=== PATIENT | female | born 1980 | race Caucasian/White ===

== ENCOUNTER 2018-10-22 16:08 | Emergency (ER) | payer MEDICAID ==
--- NOTE | 2018-10-22 16:33 | EDPHY ---
H & P Stated Complaint: abdominal pain Time Seen by Provider: 10/22/18 16:31 HPI/ROS: CHIEF COMPLAINT: Severe abdominal pain HISTORY OF PRESENT ILLNESS: 37-year-old female presents with severe abdominal pain. She was driving her car when she had sudden onset of severe lower abdominal pain. Pain waxed and waned and was associated with dizziness and nausea. She had a bowel movement without relief in pain. Continued to feel nauseated and felt like she might faint so she called 911. Pain is now 4/10 and located in the suprapubic area. LMP 2+ weeks ago, has IUD. No prior similar symptoms. No prior history of ovarian cysts or kidney stones. REVIEW OF SYSTEMS: complete 10 point ROS reviewed and is negative except for the noted elements in the HPI - Personal History LMP (Females 10-55): 15-21 Days Ago Current Tetanus/Diphtheria Vaccine: No Current Tetanus Diphtheria and Acellular Pertussis (TDAP): No - Medical/Surgical History PMH: Appendectomy Hx Asthma: No Hx Chronic Respiratory Disease: No Hx Diabetes: No Hx Cardiac Disease: No Hx Renal Disease: No Hx Cirrhosis: No Hx Alcoholism: No Hx HIV/AIDS: No Hx Splenectomy or Spleen Trauma: No - Social History Smoking Status: Never smoked Alcohol Use: Sober Drug Use: None - Physical Exam Exam: General Appearance: Alert, pleasant Eyes: Pupils equal and round, no conjunctival pallor or injection ENT, Mouth: Mucous membranes moist Neck: Normal inspection Respiratory: Lungs are clear to auscultation Cardiovascular: Regular rate and rhythm Gastrointestinal: Abdomen is soft, suprapubic and right lower quadrant tenderness, no peritoneal signs Neurological: A&O, nonfocal, normal gait Skin: Warm and dry, no rash Extremities: Normal inspection Psychiatric: Mood and affect normal Constitutional: Initial Vital Signs Temperature (C) 36.6 C 10/22/18 16:19 Heart Rate 77 10/22/18 16:19 Respiratory Rate 16 10/22/18 16:19 Blood Pressure 118/77 10/22/18 16:19 O2 Sat (%) 97 10/22/18 16:19 O2 Delivery Mode Room Air Allergies/Adverse Reactions: No Known Allergies Allergy (Verified 10/22/18 16:18) Home Medications: Medication Instructions Recorded Evening [place] Oil 1 cap PO DAILY 07/05/13 Herbals/Supplements -Info Only 07/05/13 Herbals/Supplements -Info Only 07/05/13 [place]-3/Dha/Epa/Fish Oil [Fish Oil] 1 cap PO DAILY 07/05/13 Vit27&Calcium/Iron/FA 1 each PO DAILY 07/05/13 [ Rx 1 Tablet (RX)] Medical Decision Making - Diagnostics Imaging Results: Pelvic/Renal Ultrasound 10/22/18 16:31 Impression: 1. IUD in good position within the endometrial canal. 2. Bilateral involuted follicular cysts /hemorrhagic cysts involving the ovaries. Findings discussed with Pamella Whittington M.D. at 17:39 hour, 10/22/2018. Imaging: Discussed imaging studies w/ airfield manager Radiologist ED Course/Re-evaluation: This pt presents with severe pelvic pain, with slight localization to rt. stat preg test negative, can r/o ectopic preg. Pelvic sono reveals bilateral hemorrhagic cysts. Results d/w pt, feels much better, pain has completely resolved. Abd soft/NT. Pain likely secondary to ovarian cyst, possibly d/t intestinal cramping. UA reveals no RBC, doubt kidney stone. UA 3-5 WBC, pt asymptomatic, will send urine culture treat if positive for UTI. Abd pain prec given. Differential Diagnosis: includes though not limited to ectopic , ovarian torsion, renal colic, UTI, appy. - Data Points Laboratory Results: Laboratory Results 10/22/18 16:05 10/22/18 16:05 Microbiology Results: MICROBIOLOGY 10/22/18 16:05 Urine,Clean Catch Urine Culture - Final Three [place] Types Medications Given: Discontinued Medications Ketorolac Tromethamine (Toradol) 15 mg IVP EDNOW ONE Stop: 10/22/18 18:12 Last Admin: 10/22/18 18:19 Dose: Not Given Point of Care Test Results: Chemistry 10/22/18 16:16 POC Troponin I 0.00 ng/mL ng/mL (0.00-0.08) Departure - Departure Disposition: Home, Routine, Self-Care Clinical Impression: Ovarian cyst Condition: Good Instructions: Ovarian Cyst (ED) Additional Instructions: Ibuprofen 600 mg 3 times daily while the pain persists. Referrals: Yamila Rivas, [Primary Care Provider] - As per Instructions
[2018-10-22 16:55] LABS: PLATELET COUNT 297 10^3/uL (150-400)
[2018-10-22 18:00] VITALS: BP 118/75
[2018-10-22] MEDS ORDERED: KETOROLAC 15 MG/1 ML SDV IVP ONE (18:11)
== END 2018-10-22 18:56 | disposition home or self-care (01) ==
LOC: EDUNIT#
DX: N83.01 Follicular cyst of right ovary (principal); N83.02 Follicular cyst of left ovary
CPT/HCPCS: 84484-PO; J1885